=== PATIENT | male | born 1955 | race Caucasian/White ===

== ENCOUNTER → 2020-11-04 10:47 | Outpatient (CLI) | payer OTHER, SELFPAY ==
--- NOTE | ~2020-11-04 | XR_ITS ---
EXAMINATION: XR knee LT 3V DATE: 11/04/2020 11:18 INDICATION: Left knee pain TECHNIQUE: Three views of the left knee were obtained. COMPARISON: None. FINDINGS: Alignment is normal. No fracture or osteochondral lesion. There is mild tricompartmental os teoarthritis characterized by tiny marginal osteophytes and joint space narrowing. No joint effusion/ synovitis. Soft tissues are unremarkable. IMPRESSION: 1. Osteoarthritis without acute osseous abnormality. Reviewed, dictated and finalized at location A. NG COOKER
== END ==
PROVIDERS: PCP Internal Medicine; Visit Provider Internal Medicine
DX: M17.12 Unilateral primary osteoarthritis, left knee (principal)
CPT/HCPCS: 73562

== ENCOUNTER 2025-01-26 11:38 | Emergency (ER) | payer MEDICARE, SELFPAY ==
--- NOTE | ~2025-01-26 | XR_ITS ---
EXAMINATION: XR hand RT min 3V DATE: 01/26/2025 12:36 INDICATION: Right hand pain and swelling TECHNIQUE: Posteroanterior, oblique and lateral views of the right hand were obtained. COMPARISON: None. FINDINGS: Bone alignment is normal. Irregular cortical contour to the tuft of the right third distal phalanx wh ich suggests sequela of old fracture. Small periarticular calcific densities near the triscaphe joint and fifth metacarpophalangeal joint without evident donor site to suggest fracture is most likely ei ther degenerative or sequela of old trauma. No acute fracture. Mild polyarticular osteoarthritis at t he interphalangeal joints with distal predominance. Soft tissue swelling dorsal to the metacarpophala ngeal joints. IMPRESSION: 1. No acute osseous abnormality. Reviewed, dictated and finalized at location A.
--- NOTE | 2025-01-26 11:40 | ED.UPPEXIN ---
HPI - Extremity Injury (Upper) General Chief Complaint: Extremity Problem,Nontraumatic Stated Complaint: Right Hand Finger Pain Time Seen by Provider: 01/26/25 11:39 Source: patient Mode of arrival: ambulatory Limitations: no limitations History of Present Illness HPI narrative: Mr. Sandoval is a 69-year-old male patient presenting to the clinic today with complaints of right hand/finger pain. He reports symptoms started yesterday when he was driving home from [place]. 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 States no known injury but has redness, swelling, and pain to the right 5th knuckle/ finger. States yesterday when he would make a fist he was having shooting pain into his hand however that has resolved. Woke up today and is still having pain and swelling to the right 5th knuckle/finger. No personal history of gout, no known injury, no known insect bite, and no history of DVT. Denies SOB/CP. Denies any fevers, chills, body aches. Went to see his primary care provider today and they did not have an appointment available to see him so they directed him to come over to the [facility] for evaluation. Related Data Home Medications ?Medication ?Instructions ?Recorded ?Confirmed ?Last Taken ?Type Bacillus coagulans 10 billion cell cell PO 09/24/19 04/04/24 Unknown History capsule,delayed release (Probiotic (B. coagulans)) cetirizine 10 mg tablet (Zyrtec) 10 mg PO DAILY 09/24/19 04/04/24 Unknown History cholecalciferol (vitamin D3) 25 1,000 unit PO DAILY 09/24/19 04/04/24 Unknown History mcg (1,000 unit) capsule flaxseed oil 1,000 mg capsule 1,000 mg PO DAILY 09/24/19 04/04/24 Unknown History multivitamin (Multiple Vitamins 1 tablet PO DAILY 09/24/19 04/04/24 Unknown History tablet) omeprazole magnesium 20 mg 20 mg PO DAILY 09/24/19 04/04/24 Unknown History tablet,delayed release (Prilosec OTC) vitamin B complex 1 cap PO DAILY 09/24/19 04/04/24 Unknown History glucosamine HCl 500 mg tablet 500 mg PO BID 09/26/19 04/04/24 Unknown History Allergies Allergy/AdvReac Type Severity Reaction Status Date / Time Penicillins Allergy Unknown Hives Verified 01/26/25 11:44 Review of Systems Review of Systems: Pertinent positives per HPI. Patient denies any fever, chills, rash, headache, visual changes, dizziness, cough, runny nose, sore throat, shortness of breath, chest pain, palpitations, nausea, vomiting, diarrhea, constipation, abdominal pain, or any urinary issues. [facility] Past Medical History Medical History GERD (gastroesophageal reflux disease) Hyperlipidemia Hypertension Surgical History Surgical History History of tonsillectomy Family History Family History Mother Patient's mother is in good health Heart disease Sibling Patient's sister is in good health Father Patient's father is Heart disease Cerebrovascular accident Social History Social History Smoking status: Never smoker Second hand tobacco smoke exposure: No Alcohol intake: never Substance use: never Substance use type: does not use Lack of Transportation: No Lack of Food: Never True Current Housing: I Have Housing Concerned About Future Housing: No Difficulty Paying Gas/Electric Bills: No Difficulty Paying for Meds: No Currently Unemployed: No Education: Bachelor's Degree Difficulty w/ Childcare or Family Care: No Living arrangements: with family Occupation/Education: retired Comments At the time of my signature, I reviewed and agree with the nursing past medical, surgical, social, and family history. There is no relevant family history pertinent to the patient complaint. Exam Narrative: General: Well-developed, well nourished, in no apparent distress Head: Normocephalic, atraumatic. Cardio: Regular rate and rhythm, s1 and s2 normal, no murmur appreciated. Resp: Clear to auscultation bilaterally, no rhonchi, rales, wheezing or rubs. Musculoskeletal: No deformity, redness, mild erythema, and swelling noted to the right 5th finger, knuckle, and proximal metacarpal, tender to palpation, pain with flexion of the right 5th finger, limited rom due to pain, muscle strength strong and equal, peripheral radial pulse strong, no cyanosis, normal gait and station Course Course Emergency Course: Portions of this record may have been created with voice recognition software. Level of Care: [facility] Visit Vital Signs Vital signs: Vital Signs Temperature 36.7 C 01/26/25 11:45 Pulse Rate 61 01/26/25 11:45 Respiratory Rate 20 01/26/25 11:45 Blood Pressure 162/82 H 01/26/25 11:45 Pulse Oximetry 100 01/26/25 11:45 Oxygen Delivery Room Air 01/26/25 11:45 Temperature 36.7 C 01/26/25 11:45 Pulse Rate 61 01/26/25 11:45 Respiratory Rate 20 01/26/25 11:45 Blood Pressure 162/82 H 01/26/25 11:45 Pulse Oximetry 100 01/26/25 11:45 Oxygen Delivery Room Air 01/26/25 11:45 Vital signs reviewed MDM - Extremity Injury (Upper) MDM Narrative Medical decision making narrative: At the time of visit patient is resting comfortably on the exam table. Patient appears to be nontoxic. We do not currently have x-ray at the [facility] so report was called to Michelle SILVA at the [facility]. Diagnostics: Right hand x-ray was performed and negative for any sign of fracture or malalignment. Plan: I suspect patient possibly has a right hand sprain versus tendinitis. Supportive measures were discussed with the patient and they voiced understanding discharge instructions and agrees to treatment plan. Return precautions reviewed Differential Diagnosis Differential diagnosis: Likely finger sprain, dislocation of finger, Colles' fracture, fracture of hand and other (Gout, osteoarthritis, DVT, tendinitis) Imaging Data Radiologist's impression: ITS Impressions Hand X-Ray 01/26/25 12:44 IMPRESSION: 1. No acute osseous abnormality. Discharge Plan Discharge Clinical Impression: Hand pain, right Patient Disposition: Home Condition: Stable Instructions: Antibiotic Form, Hand Sprain (ED) Additional Instructions: X-ray shows no sign of acute fracture or malalignment of the right hand. Rest, ice, elevate, and wear jose angel wrap as directed Tylenol/motrin for pain as discussed. Tylenol 650-1000mg by mouth every 4-6 hours. Do not exceed 4000mg in 24 hours. Advil (Ibuprofen) 600 mg by mouth every 6 hours. Do not exceed 2400mg in 24 hours. 8 AM: Tylenol 11 AM: Ibuprofen 2 PM: Tylenol 5 PM: Ibuprofen 8 PM: Tylenol 11 PM: Ibuprofen 2 AM: Tylenol 5 AM: Ibuprofen Follow up with your PCP if symptoms persist more than 1 week. Patient Language: Divehi Prescriptions: No Action multivitamin [Multiple Vitamins] Tablet 1 tablet PO DAILY Prilosec OTC 20 mg tablet,delayed release (DR/EC) 20 mg PO DAILY cetirizine [Zyrtec] 10 mg tablet 10 mg PO DAILY flaxseed oil 1,000 mg capsule 1,000 mg PO DAILY cholecalciferol (vitamin D3) 1,000 unit capsule 1,000 unit PO DAILY Probiotic (B. coagulans) 10 billion cell capsule,delayed release(DR/EC) PO vitamin B complex Capsule 1 cap PO DAILY glucosamine HCl 500 mg tablet 500 mg PO BID fluticasone propionate [Flonase Allergy Relief] 50 mcg/actuation spray,suspension 2 spray intranasal DAILY Qty: 16 3RF Rx Instructions: administer into each nostril lisinopril-hydrochlorothiazide 20-12.5 mg tablet 2 tablet PO DAILY Qty: 180 3RF Follow-up/Referrals: Rony Adhikari DO [Primary Care Provider] - Time of Disposition: 12:54 Quality NIHSS Nursing Documentation ED NIHSS nursing documentation: reviewed/agree
[2025-01-26 11:45] VITALS: BP 162/82; PULSE 61; RESP 20; TEMP 36.7; O2SAT 100
--- NOTE | 2025-01-26 12:07 | PC.NURSE ---
1206- RN to RN report received from Shital Polk pt being transferred to [place] facility for XRay.
--- NOTE | 2025-01-26 12:49 | PC.NURSE ---
1226- pt arrived at facility for xray
== END 2025-01-26 12:58 | disposition home or self-care (01) ==
PROVIDERS: Emergency Provider Nurse Practitioner Family; PCP Internal Medicine
DX: M79.641 Pain in right hand (principal); I10 Essential (primary) hypertension; E78.5 Hyperlipidemia, unspecified; K21.9 Gastro-esophageal reflux disease without esophagitis
CPT/HCPCS: 73130; 99213; G0463